=== PATIENT | male | born 1965 | race Caucasian/White ===

== ENCOUNTER → 2017-10-17 | Outpatient (CLI) | payer OTHER ==
[2017-10-17] MEDS: GADOBUTROL 7.5 MMOL/7.5 ML VIAL IV (09:05)
== END | disposition home or self-care (01) ==
LOC: KCIC MRI 08:25
DX: S09.90XD Unspecified injury of head, subsequent encounter (principal); R51 Headache; X58.XXXD Exposure to other specified factors, subsequent encounter
CPT/HCPCS: 70553; A9585